=== PATIENT | male | born 1970 | race Caucasian/White ===

== ENCOUNTER 2017-08-05 18:40 | Emergency (ER) | payer MEDICARE, MEDICAID ==
[~2017-08-05] VITALS: Ht 177.8 cm; Wt 99.3 kg
--- NOTE | 2017-08-05 19:25 | PHYS DOC ---
Past History Past Medical History: No Pertinent History Past Surgical History: Cholecystectomy Alcohol Use: None Drug Use: None Adult General Chief Complaint Chief Complaint: SUICDAL IDEATION HPI HPI Patient is a 47 year old M who presents with depression and suicidal ideation. Patient states he had an argument with his who called the police on him and the patient would like a male army helicopter pilot to shoot him . Unfortunately female army helicopter pilot showed up and he would not allow her to take his life. Patient states he is suicidal. Patient is not homicidal. Patient has no guns in the house. Patient has other attempts of suicide along standing history of depression. Patient off all his medications. Patient denies any chest pain or shortness of breath. Patient denies any nausea/vomiting/diarrhea. Patient is no other complaints. Review of Systems Review of Systems GEN: Depression and suicide HEENT: Denies blurred vision, sore throat CV: Denies chest pain RESP: Denies shortness of air, cough GI: Denies n/v/d NEURO: Denies confusion, dizziness MSK: Denies weakness, joint pain/swelling All other systems were reviewed and found to be within normal limits, except as documented in this note. Physical Exam Physical Exam GEN.: Moderate distress. Alert and oriented. HEENT: Head is normocephalic, atraumatic NECK: Supple. LUNGS: CTAB. HEART: RRR, S1, S2 present. Peripheral pulses intact ABDOMEN: Soft, nontender. Positive bowel sounds. EXTREMITIES: Without any cyanosis. NEUROLOGIC: Normal speech, normal tone PSYCHIATRIC: Depressed, suicidal ideation, will not make eye contact. SKIN: No ulcerations Current Patient Data Vital Signs Vital Signs Date Time Temp Pulse Resp B/P (MAP) Pulse Ox O2 Delivery O2 Flow Rate FiO2 08/05/17 19:14 98.8 100 24 95 Room Air Lab Results Laboratory Tests Test 08/05/17 19:40 08/05/17 19:55 White Blood Count 12.5 x10^3/uL Red Blood Count 5.16 x10^6/uL Hemoglobin 16.9 g/dL Hematocrit 48.3 % Mean Corpuscular Volume 94 fL Mean Corpuscular Hemoglobin 33 pg Mean Corpuscular Hemoglobin Concent 35 g/dL Red Cell Distribution Width 12.9 % Platelet Count 253 x10^3/uL Neutrophils (%) (Auto) 74 % Lymphocytes (%) (Auto) 20 % Monocytes (%) (Auto) 5 % Eosinophils (%) (Auto) 2 % Basophils (%) (Auto) 0 % Neutrophils # (Auto) 9.2 x10^3uL Lymphocytes # (Auto) 2.5 x10^3/uL Monocytes # (Auto) 0.6 x10^3/uL Eosinophils # (Auto) 0.2 x10^3/uL Basophils # (Auto) 0.0 x10^3/uL Sodium Level 138 mmol/L Potassium Level 3.7 mmol/L Chloride Level 102 mmol/L Carbon Dioxide Level 28 mmol/L Anion Gap 8 Blood Urea Nitrogen 7 mg/dL Creatinine 0.9 mg/dL Estimated GFR (Cockcroft-Gault) 90.4 BUN/Creatinine Ratio 8 Glucose Level 90 mg/dL Calcium Level 9.1 mg/dL Total Bilirubin 0.5 mg/dL Aspartate Amino Transf (AST/SGOT) 11 U/L Alanine Aminotransferase (ALT/SGPT) 19 U/L Alkaline Phosphatase 119 U/L Troponin I Quantitative < 0.017 ng/mL Total Protein 6.8 g/dL Albumin 3.5 g/dL Albumin/Globulin Ratio 1.1 Ethyl Alcohol Level < 10 mg/dL Urine Opiates Screen Neg Urine Methadone Screen Neg Urine Barbiturates Neg Urine Phencyclidine Screen Neg Urine Amphetamine/Methamphetamine Neg Urine Benzodiazepines Screen Neg Urine Cocaine Screen Neg Urine Cannabinoids Screen Neg Urine Ethyl Alcohol Neg EKG EKG [] Radiology/Procedures Radiology/Procedures [] Course & Med Decision Making Course & Med Decision Making Pertinent Labs and Imaging studies reviewed. (See chart for details) ED course: Patient was seen and examined emergency room a psych workup was ordered After reviewing the chart, CC/HPI/PMH, physical exam, [lab results], I do not believe the patient has emergent medical condition warranting further workup and /or admission at this time. I believe patient is stable to be transferred to a psych facility for further evaluation and management. 0158: [facility] has accepted the patient [] Dragon Disclaimer Dragon Disclaimer This electronic medical record was generated, in whole or in part, using a voice recognition dictation system. Departure Departure: Impression: Primary Impression: Suicidal ideation Additional Impression: Depression Disposition: 65 XFER TO PSYCH HOSP/UNIT Condition: STABLE Problem Qualifiers PATTI QUINTERO DO Aug 05, 2017 19:25
[2017-08-05 20:14] LABS: BASO % 0 % (0-3); EOS # 0.2 x10^3/uL (0.0-0.7); EOS % 2 % (0-3); HEMATOCRIT 48.3 % (39.0-53.0); HEMOGLOBIN 16.9 g/dL (13.0-17.5); LYMPH # 2.5 x10^3/uL (1.0-4.8); LYMPH % 20 % (24-48); MEAN CORPUSCULAR HEMOGLOBIN 33 pg (25-35); MEAN CORPUSCULAR HGB CONC 35 g/dL (31-37); MEAN CORPUSCULAR VOLUME 94 fL (79-100); MONO # 0.6 x10^3/uL (0.0-1.1); MONO % 5 % (0-9); NEUT # 9.2 x10^3uL (1.8-7.7); NEUT % 74 % (31-73); PLATELET COUNT 253 x10^3/uL (140-400); RED BLOOD COUNT 5.16 x10^6/uL (4.30-5.70); RED CELL DISTRIBUTION WIDTH 12.9 % (11.5-14.5); WHITE BLOOD COUNT 12.5 x10^3/uL (4.0-11.0)
[2017-08-05 20:21] LABS: ALBUMIN 3.5 g/dL (3.4-5.0); ALBUMIN/GLOBULIN RATIO 1.1 (1.0-1.7); CALCIUM 9.1 mg/dL (8.5-10.1); CREATININE 0.9 mg/dL (0.7-1.3); GFR 90.4; POTASSIUM 3.7 mmol/L (3.5-5.1); TOTAL BILIRUBIN 0.5 mg/dL (0.2-1.0); TOTAL PROTEIN 6.8 g/dL (6.4-8.2)
[2017-08-05 20:36] LABS: BARBITURATES NEG (NEG); BENZODIAZEPINES NEG (NEG); CANNABINOIDS NEG (NEG); COCAINE NEG (NEG); METHADONE NEG (NEG); OPIATES NEG (NEG); PHENCYCLIDINE NEG (NEG)
[2017-08-05 20:37] LABS: AMPHETAMINE/METHAMPHETAMINE NEG (NEG)
[2017-08-06 02:17] VITALS: BP 142/81
== END 2017-08-06 03:30 ==
LOC: ER 18:40
DX: R45.851 Suicidal ideations (principal); F32.9 Major depressive disorder, single episode, unspecified
CPT/HCPCS: 36415; 80053; 80307; 84484; 85025; 99285; G0480; G0479

== ENCOUNTER 2018-01-04 23:10 | Emergency (ER) | payer MEDICARE, MEDICAID ==
[~2018-01-04] VITALS: Ht 177.8 cm; Wt 94.8 kg
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
--- NOTE | 2018-01-04 23:52 | EKG ---
[address] [address] Test Date: 2018-01-04 Test Time: 23:47:57 Pat Name: KARLEY DELGADO Department: Room: Gender: M [employer] Attacher: : 1970 Requested By: VICTOR MANUEL CUBA Order Number: [id number] Reading MD: Emir Kelley Measurements Intervals [place] Rate: 83 P: 51 MT: 130 QRS: 40 QRSD: 96 T: 42 QT: 352 QTc: 414 Interpretive Statements SINUS RHYTHM Electronically Signed On 01-07-2018 11:00:26 CDT by Emir Kelley
[2018-01-05] MEDS ORDERED: IV RINGERS SOLUTION,LACTATED 1,000 ML IV SCH
[2018-01-05] MEDS ORDERED: MVI, ADULT NO.4 WITH VIT K 10 ML, FOLIC ACID SYRINGE for ER 1 MG, THIAMINE INJ 100 MG i... IV ONE ×4
[2018-01-05] MEDS ORDERED: MVI, ADULT NO.4 WITH VIT K 10 ML VIAL IV ONE (00:12)
[2018-01-05] MEDS ORDERED: THIAMINE 200 MG/2 ML VIAL. IV ONE (00:12)
[2018-01-05] MEDS ORDERED: FOLIC ACID 5 MG/ML SYRINGE for ER IV ONE (00:12)
[2018-01-05 00:57] LABS: BASO # 0.1 x10^3/uL (0.0-0.2); BASO % 0 % (0-3); EOS # 0.2 x10^3/uL (0.0-0.7); EOS % 2 % (0-3); HEMATOCRIT 46.1 % (39.0-53.0); LYMPH # 3.3 x10^3/uL (1.0-4.8); LYMPH % 30 % (24-48); MEAN CORPUSCULAR HEMOGLOBIN 32 pg (25-35); MEAN CORPUSCULAR HGB CONC 35 g/dL (31-37); MEAN CORPUSCULAR VOLUME 93 fL (79-100); MONO # 0.5 x10^3/uL (0.0-1.1); MONO % 5 % (0-9); NEUT # 7.1 x10^3uL (1.8-7.7); NEUT % 63 % (31-73); PLATELET COUNT 283 x10^3/uL (140-400); RED BLOOD COUNT 4.94 x10^6/uL (4.30-5.70); RED CELL DISTRIBUTION WIDTH 13.1 % (11.5-14.5); WHITE BLOOD COUNT 11.2 x10^3/uL (4.0-11.0)
[2018-01-05 01:11] LABS: ALBUMIN 3.7 g/dL (3.4-5.0); CALCIUM 9.6 mg/dL (8.5-10.1); CREATININE 0.8 mg/dL (0.7-1.3); DIRECT BILIRUBIN 0.1 mg/dL (0.0-0.2); GFR 103.6; MAGNESIUM 1.7 mg/dL (1.8-2.4); POTASSIUM 3.4 mmol/L (3.5-5.1); TOTAL BILIRUBIN 0.5 mg/dL (0.2-1.0); TOTAL PROTEIN 7.1 g/dL (6.4-8.2)
--- NOTE | 2018-01-05 01:35 | RAD ---
PQRS Compliance statement: One or more of the following individualized dose reduction techniques were utilized for this examination: 1. Automated exposure control. 2. Adjustment of the mA and/or kV according to patient size. 3. Use of iterative reconstruction technique. Indication:Mental status changes TECHNIQUE: CT head without IV contrast COMPARISON:None FINDINGS: no pathologic extra-axial or intra-axial fluid collection. The ventricles and nasal cisterns are within normal limits. No acute intracranial bleed. No focal loss of biswas-white differentiation. The orbits are within normal limits. No suspicious calvarial lesion. Visualized paranasal sinuses and mastoid air cells are clear. IMPRESSION: No acute intracranial process. If concern for acute ischemic stroke is high, please consider MRI brain. Electronically signed by: Robbie Petersen DO (01/05/2018 1:31 AM) [facility]
[2018-01-05] MEDS ORDERED: MAGNESIUM HYDROXIDE 2,400 MG/30 ML ORAL.SUSP. PO ONE (02:00)
[2018-01-05 02:24] LABS: AMPHETAMINE/METHAMPHETAMINE NEG (NEG); BARBITURATES NEG (NEG); BENZODIAZEPINES NEG (NEG); CANNABINOIDS NEG (NEG); COCAINE NEG (NEG); METHADONE NEG (NEG); OPIATES NEG (NEG); PHENCYCLIDINE NEG (NEG)
[2018-01-05 02:31] LABS: BACTERIA,URINE FEW /HPF (0-FEW); BILIRUBIN,URINE NEG (NEG); CLARITY,URINE HAZY; COLOR,URINE AMBER; GLUCOSE,URINE NEG (NEG); NITRITE,URINE NEG (NEG); RBC,URINE OCC /HPF (0-2); SQUAMOUS EPITHELIAL CELL,UR OCC /LPF; UROBILINOGEN,URINE 0.2 mg/dL (0.2 mg/dL)
--- NOTE | 2018-01-05 04:17 | RAD ---
PROCEDURE: PORTABLE CHEST 1V CLINICAL INDICATION: Cough COMPARISON: " FINDINGS: No pneumothorax identified. Cardiac and mediastinal contours unremarkable. No pulmonary consolidation or acute airspace disease. No acute osseous abnormalities identified. IMPRESSION: No pulmonary consolidation or acute airspace disease. Electronically signed by: Robbie Petersen DO (01/05/2018 4:13 AM) [facility]
[2018-01-05 06:39] VITALS: BP 115/44
[2018-01-05] MEDS ORDERED: MAGNESIUM OXIDE 400 MG TABLET PO ONE (06:45)
[2018-01-05] MEDS ORDERED: POTASSIUM CHLORIDE 20 MEQ/15 ML ORAL LIQUID. PEG ONE (06:45)
[2018-01-05] MEDS ORDERED: LORazepam 1 MG TABLET PO ONE (07:15)
[2018-01-05] MEDS ORDERED: OLANZapine 2.5 MG TABLET PO ONE (07:15)
[2018-01-05] MEDS ORDERED: LORazepam 1 MG TABLET ONE (07:16)
[2018-01-05] MEDS ORDERED: MAGN400T22 PO (10:44)
[2018-01-05] MEDS ORDERED: POTA10TA10 PO (10:44)
== END 2018-01-05 13:05 | disposition home or self-care (01) ==
LOC: ER 23:10
DX: R41.82 Altered mental status, unspecified (principal); E83.42 Hypomagnesemia; E87.6 Hypokalemia; F31.9 Bipolar disorder, unspecified; F29 Unspecified psychosis not due to a substance or known physiological condition; F41.9 Anxiety disorder, unspecified; F20.9 Schizophrenia, unspecified; G43.909 Migraine, unspecified, not intractable, without status migrainosus; Z87.820 Personal history of traumatic brain injury; Z91.14 Patient's other noncompliance with medication regimen
CPT/HCPCS: 36415; 70450; 71045; 80048; 80076; 80307; 81001; 82550; 83735; 84443; 84484; 85025; 85610; 85730; 93005; 96365; 99285; G0480; J7120; G0479

== ENCOUNTER 2018-03-18 18:31 | Emergency (ER) | payer MEDICARE, MEDICAID ==
[~2018-03-18] VITALS: Ht 177.8 cm; Wt 94.8 kg
[~2018-03-18 18:31] MED LIST: MAGN400T22 PO; POTA10TA10 PO
[2018-03-18 19:14] LABS: BASO # 0.1 x10^3/uL (0.0-0.2); BASO % 1 % (0-3); EOS # 0.2 x10^3/uL (0.0-0.7); EOS % 2 % (0-3); HEMATOCRIT 46.2 % (39.0-53.0); HEMOGLOBIN 15.9 g/dL (13.0-17.5); LYMPH # 2.6 x10^3/uL (1.0-4.8); LYMPH % 30 % (24-48); MEAN CORPUSCULAR HEMOGLOBIN 32 pg (25-35); MEAN CORPUSCULAR HGB CONC 34 g/dL (31-37); MEAN CORPUSCULAR VOLUME 94 fL (79-100); MONO # 0.5 x10^3/uL (0.0-1.1); MONO % 6 % (0-9); NEUT # 5.2 x10^3uL (1.8-7.7); NEUT % 61 % (31-73); PLATELET COUNT 266 x10^3/uL (140-400); RED BLOOD COUNT 4.92 x10^6/uL (4.30-5.70); RED CELL DISTRIBUTION WIDTH 12.9 % (11.5-14.5); WHITE BLOOD COUNT 8.5 x10^3/uL (4.0-11.0)
[2018-03-18 19:22] LABS: CALCIUM 9.4 mg/dL (8.5-10.1); CREATININE 0.9 mg/dL (0.7-1.3); GFR 90.4; POTASSIUM 3.9 mmol/L (3.5-5.1)
[2018-03-18 19:26] LABS: AMPHETAMINE/METHAMPHETAMINE POS (NEG); BARBITURATES NEG (NEG); BENZODIAZEPINES NEG (NEG); CANNABINOIDS NEG (NEG); COCAINE NEG (NEG); METHADONE NEG (NEG); OPIATES NEG (NEG); PHENCYCLIDINE NEG (NEG)
--- NOTE | 2018-03-18 19:45 | PHYS DOC ---
Adult General Chief Complaint Chief Complaint i need help HPI HPI 47 years old male with multiple problem presented to the emergency department by ambulance they called 911 stating that he is suicidal however in emergency department he denies it he stated the only reason I said I am suicidal so I get to the to the emergency department ,i m having trouble with my and I need to be out of my house also need to be placed in some mental institution to get some help. Patient denies suicidal thoughts suicidal attempts also denies being homicidal . Review of Systems Review of Systems Constitutional: Denies fever or chills [] Eyes: Denies change in visual acuity, redness, or eye pain [] HENT: Denies nasal congestion or sore throat [] Respiratory: Denies cough or shortness of breath [] Cardiovascular: No additional information not addressed in HPI [] GI: Denies abdominal pain, nausea, vomiting, bloody stools or diarrhea [] : Denies dysuria or hematuria [] Musculoskeletal: Denies back pain or joint pain [] Integument: Denies rash or skin lesions [] Neurologic: Denies headache, focal weakness or sensory changes [] Endocrine: Denies polyuria or polydipsia [] All other systems were reviewed and found to be within normal limits, except as documented in this note. Allergies Allergies Allergies Coded Allergies Type Severity Reaction Last Updated Verified No Known Drug Allergies 01/05/18 No Physical Exam Physical Exam Constitutional: Well developed, well nourished, no acute distress, non-toxic appearance. [] HENT: Normocephalic, atraumatic, bilateral external ears normal, oropharynx moist, no oral exudates, nose normal. [] Eyes: PERRLA, EOMI, conjunctiva normal, no discharge. [] Neck: Normal range of motion, no tenderness, supple, no stridor. [] Cardiovascular:Heart rate regular rhythm, no murmur [] Lungs & Thorax: Bilateral breath sounds clear to auscultation [] Abdomen: Bowel sounds normal, soft, no tenderness, no masses, no pulsatile masses. [] Skin: Warm, dry, no erythema, no rash. [] Back: No tenderness, no CVA tenderness. [] Extremities: No tenderness, no cyanosis, no clubbing, ROM intact, no edema. [] Neurologic: Alert and oriented X 3, normal motor function, normal sensory function, no focal deficits noted. [] Psychologic: Very angry Current Patient Data Vital Signs Vital Signs Date Time Temp Pulse Resp B/P (MAP) Pulse Ox O2 Delivery O2 Flow Rate FiO2 03/18/18 18:45 98.1 94 18 98 Room Air Lab Results Laboratory Tests Test 03/18/18 19:00 White Blood Count 8.5 x10^3/uL (4.0-11.0) Red Blood Count 4.92 x10^6/uL (4.30-5.70) Hemoglobin 15.9 g/dL (13.0-17.5) Hematocrit 46.2 % (39.0-53.0) Mean Corpuscular Volume 94 fL (79-100) Mean Corpuscular Hemoglobin 32 pg (25-35) Mean Corpuscular Hemoglobin Concent 34 g/dL (31-37) Red Cell Distribution Width 12.9 % (11.5-14.5) Platelet Count 266 x10^3/uL (140-400) Neutrophils (%) (Auto) 61 % (31-73) Lymphocytes (%) (Auto) 30 % (24-48) Monocytes (%) (Auto) 6 % (0-9) Eosinophils (%) (Auto) 2 % (0-3) Basophils (%) (Auto) 1 % (0-3) Neutrophils # (Auto) 5.2 x10^3uL (1.8-7.7) Lymphocytes # (Auto) 2.6 x10^3/uL (1.0-4.8) Monocytes # (Auto) 0.5 x10^3/uL (0.0-1.1) Eosinophils # (Auto) 0.2 x10^3/uL (0.0-0.7) Basophils # (Auto) 0.1 x10^3/uL (0.0-0.2) Sodium Level 138 mmol/L (136-145) Potassium Level 3.9 mmol/L (3.5-5.1) Chloride Level 101 mmol/L (98-107) Carbon Dioxide Level 30 mmol/L (21-32) Anion Gap 7 (6-14) Blood Urea Nitrogen 9 mg/dL (8-26) Creatinine 0.9 mg/dL (0.7-1.3) Estimated GFR (Cockcroft-Gault) 90.4 Glucose Level 95 mg/dL (70-99) Calcium Level 9.4 mg/dL (8.5-10.1) Urine Opiates Screen Neg (NEG) Urine Methadone Screen Neg (NEG) Urine Barbiturates Neg (NEG) Urine Phencyclidine Screen Neg (NEG) Urine Amphetamine/Methamphetamine Pos (NEG) Urine Benzodiazepines Screen Neg (NEG) Urine Cocaine Screen Neg (NEG) Urine Cannabinoids Screen Neg (NEG) Ethyl Alcohol Level < 10 mg/dL (0-10) Urine Ethyl Alcohol Neg (NEG) EKG EKG [] Radiology/Procedures Radiology/Procedures [] Course & Med Decision Making Course & Med Decision Making Pertinent Labs and Imaging studies reviewed. (See chart for details) [] Final Impression Final Impression [] Problems: (1) Depression Qualifiers: Dragon Disclaimer Dragon Disclaimer This electronic medical record was generated, in whole or in part, using a voice recognition dictation system. JARAD CHOWDHURY MD Mar 18, 2018 19:45
[2018-03-19 04:28] VITALS: BP 105/87
== END 2018-03-19 04:28 | disposition home or self-care (01) ==
LOC: ER 18:31
DX: F32.9 Major depressive disorder, single episode, unspecified (principal)
CPT/HCPCS: 36415; 80048; 80307; 85025; 99284; G0480

== ENCOUNTER 2018-04-22 18:16 | Emergency (ER) | payer MEDICAID, MEDICARE ==
[~2018-04-22] VITALS: Ht 177.8 cm; Wt 102.4 kg
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
[2018-04-22] MEDS ORDERED: MVI, ADULT NO.4 WITH VIT K 10 ML, FOLIC ACID SYRINGE for ER 1 MG, THIAMINE INJ 100 MG i... IV ONE ×4 (19:00)
[2018-04-22 19:34] LABS: BASO # 0.1 x10^3/uL (0.0-0.2); BASO % 1 % (0-3); EOS # 0.2 x10^3/uL (0.0-0.7); EOS % 2 % (0-3); HEMATOCRIT 46.3 % (39.0-53.0); HEMOGLOBIN 15.9 g/dL (13.0-17.5); LYMPH # 2.9 x10^3/uL (1.0-4.8); LYMPH % 24 % (24-48); MEAN CORPUSCULAR HEMOGLOBIN 32 pg (25-35); MEAN CORPUSCULAR HGB CONC 34 g/dL (31-37); MEAN CORPUSCULAR VOLUME 94 fL (79-100); MONO # 0.7 x10^3/uL (0.0-1.1); MONO % 6 % (0-9); NEUT # 8.5 x10^3uL (1.8-7.7); NEUT % 68 % (31-73); PLATELET COUNT 301 x10^3/uL (140-400); RED BLOOD COUNT 4.94 x10^6/uL (4.30-5.70); RED CELL DISTRIBUTION WIDTH 12.8 % (11.5-14.5); WHITE BLOOD COUNT 12.5 x10^3/uL (4.0-11.0)
[2018-04-22 19:58] LABS: ALBUMIN 3.6 g/dL (3.4-5.0); CREATININE 0.9 mg/dL (0.7-1.3); DIRECT BILIRUBIN 0.1 mg/dL (0.0-0.2); GFR 90.4; MAGNESIUM 1.7 mg/dL (1.8-2.4); POTASSIUM 3.6 mmol/L (3.5-5.1); TOTAL BILIRUBIN 0.4 mg/dL (0.2-1.0)
[2018-04-22 20:36] LABS: BARBITURATES NEG (NEG); BENZODIAZEPINES NEG (NEG); CANNABINOIDS NEG (NEG); COCAINE NEG (NEG); METHADONE NEG (NEG); OPIATES NEG (NEG); PHENCYCLIDINE NEG (NEG)
[2018-04-22 20:37] LABS: AMPHETAMINE/METHAMPHETAMINE NEG (NEG)
[2018-04-22] MEDS ORDERED: MAGNESIUM SULFATE 2GM 50 ML IV ONE (20:45)
[2018-04-22] MEDS ORDERED: IV RINGERS SOLUTION,LACTATED 1,000 ML IV ONE (20:45)
[2018-04-22 20:57] LABS: SEDIMENTATION RATE 6 (0-15)
[2018-04-22 21:48] LABS: CLARITY,URINE CLEAR; COLOR,URINE STRAW
[2018-04-22 21:49] LABS: BACTERIA,URINE 0 /HPF (0-FEW); BILIRUBIN,URINE NEG (NEG); GLUCOSE,URINE NEG (NEG); NITRITE,URINE NEG (NEG); RBC,URINE 0 /HPF (0-2); UROBILINOGEN,URINE 0.2 mg/dL (0.2 mg/dL); WBC,URINE OCC /HPF (0-4)
--- NOTE | 2018-04-23 00:07 | RAD ---
Examination: PORTABLE CHEST 1V History: COUGH Comparison/Correlation: 01/04/2018 portable chest x-ray exam Findings: Portable upright frontal view of the chest was obtained. Heart size and pulmonary vasculature are normal. No infiltrate, pneumothorax, or pleural effusion. Bony structures are unremarkable. Impression: No active disease. Electronically signed by: Ahmet Ledesma MD (04/23/2018 12:03 AM) [facility]
[2018-04-23] MEDS ORDERED: LITH150C PO (03:16)
[2018-04-23] MEDS ORDERED: BUPR100T7 PO (03:17)
[2018-04-23] MEDS ORDERED: HALO100A2 IM (03:18)
[2018-04-23 03:19] VITALS: BP 139/84
[2018-04-23] MEDS ORDERED: TRAZ-85 PO (03:19)
--- NOTE | 2018-04-23 05:47 | EKG ---
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
== END 2018-04-23 06:03 | disposition short-term general hospital (02) ==
LOC: ER 18:16 → EEVIPCON 18:16 → ER 04-23 04:55
DX: R45.851 Suicidal ideations (principal); F60.3 Borderline personality disorder; E83.42 Hypomagnesemia; D72.829 Elevated white blood cell count, unspecified; F25.9 Schizoaffective disorder, unspecified; F41.9 Anxiety disorder, unspecified; F31.9 Bipolar disorder, unspecified; G43.909 Migraine, unspecified, not intractable, without status migrainosus; Z91.19 Patient's noncompliance with other medical treatment and regimen
CPT/HCPCS: 36415; 71045; 80048; 80076; 80178; 80307; 81001; 82553; 83690; 83735; 83880; 84443; 84484; 85025; 85610; 85651; 85730; 93005; 96365; 96366; 96367; 99285; G0480; J3475; J7120

== ENCOUNTER 2018-07-17 19:14 | Emergency (ER) | payer MEDICARE ==
[~2018-07-17] VITALS: Ht 177.8 cm; Wt 102.4 kg
[~2018-07-17 19:14] MED LIST changes: +BUPR100T7 PO; +HALO100A2 IM; +LITH150C PO; +TRAZ-120 PO
[2018-07-17 19:39] VITALS: BP 117/81
[2018-07-17 19:56] LABS: BARBITURATES NEG (NEG); BENZODIAZEPINES NEG (NEG); CANNABINOIDS NEG (NEG); COCAINE NEG (NEG); METHADONE NEG (NEG); OPIATES NEG (NEG); PHENCYCLIDINE NEG (NEG)
[2018-07-17 19:58] LABS: AMPHETAMINE/METHAMPHETAMINE NEG (NEG)
[2018-07-17 20:12] LABS: BACTERIA,URINE 0 /HPF (0-FEW); BILIRUBIN,URINE NEG (NEG); CLARITY,URINE CLEAR; COLOR,URINE YELLOW; GLUCOSE,URINE NEG (NEG); NITRITE,URINE NEG (NEG); RBC,URINE 0 /HPF (0-2); SQUAMOUS EPITHELIAL CELL,UR OCC /LPF; UROBILINOGEN,URINE 0.2 mg/dL (0.2 mg/dL); WBC,URINE 0 /HPF (0-4)
[2018-07-17 20:27] LABS: BASO % 0 % (0-3); EOS # 0.1 x10^3/uL (0.0-0.7); EOS % 1 % (0-3); HEMOGLOBIN 16.7 g/dL (13.0-17.5); LYMPH # 2.5 x10^3/uL (1.0-4.8); LYMPH % 28 % (24-48); MEAN CORPUSCULAR HEMOGLOBIN 32 pg (25-35); MEAN CORPUSCULAR HGB CONC 35 g/dL (31-37); MEAN CORPUSCULAR VOLUME 92 fL (79-100); MONO # 0.5 x10^3/uL (0.0-1.1); MONO % 5 % (0-9); NEUT # 5.9 x10^3uL (1.8-7.7); NEUT % 66 % (31-73); PLATELET COUNT 249 x10^3/uL (140-400); RED BLOOD COUNT 5.23 x10^6/uL (4.30-5.70)
[2018-07-17 21:11] LABS: ALBUMIN 3.6 g/dL (3.4-5.0); CALCIUM 10.1 mg/dL (8.5-10.1); CREATININE 1.1 mg/dL (0.7-1.3); DIRECT BILIRUBIN 0.1 mg/dL (0.0-0.2); GFR 71.4; POTASSIUM 3.4 mmol/L (3.5-5.1); TOTAL BILIRUBIN 0.4 mg/dL (0.2-1.0); TOTAL PROTEIN 7.1 g/dL (6.4-8.2)
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
== END 2018-07-18 02:40 | disposition left against medical advice (07) ==
LOC: ER 19:14
DX: F22 Delusional disorders (principal); F41.9 Anxiety disorder, unspecified; F31.9 Bipolar disorder, unspecified
CPT/HCPCS: 36415; 80048; 80076; 80307; 81001; 85025; 99284; G0480

== ENCOUNTER 2018-09-27 19:56 | Emergency (ER) | payer MEDICARE ==
[~2018-09-27] VITALS: Ht 177.8 cm; Wt 88.5 kg
--- NOTE | 2018-09-27 20:01 | ED.ADGEN ---
Past History Past Medical History: Anxiety, Bipolar, Depression Past Surgical History: No Surgical History Alcohol Use: None Drug Use: None Adult General Chief Complaint Chief Complaint ".. My mom .. and girl friend think I am dehydrated.. I screwed up.. and did not keep my counseling apt. and the cut me off my Haldol and trazodone and lithium.. ".. " I fucked up.. and did not do my follow up.... but I don't want to go off the deep end.. all psycho shit..." HPI HPI Patient is a 48 year old male who presents with above hx and complaints out of his psych. meds and dehydration. Pt. concerned he may become psychotic again. Currently no suicidal ideation or homicidal ideation. Patient denies any active hallucinations at this time. Patient has history of bipolar disorder schedule for anemia, affective disorder, depression, anxiety. Insomnia. Patient normally follows at counseling center. Patient missed to noncompliance with his follow- ups which resulted him be in out of his psychiatric meds. Patient denies other drug use currently. Patient does smoke. Patient is aware is he is more anxious and his insomnia is returning. Review of Systems Review of Systems Constitutional: Denies fever or chills [] Eyes: Denies change in visual acuity, redness, or eye pain [] HENT: Denies nasal congestion or sore throat [] Respiratory: Denies cough or shortness of breath [] Cardiovascular: No additional information not addressed in HPI [] GI: Denies abdominal pain, nausea, vomiting, bloody stools or diarrhea [] : Denies dysuria or hematuria [] Musculoskeletal: Denies back pain or joint pain [] Integument: Denies rash or skin lesions [] Neurologic: Denies headache, focal weakness or sensory changes [] Endocrine: Denies polyuria or polydipsia [] All other systems were reviewed and found to be within normal limits, except as documented in this note. Family History Family History Noncontributory Current Medications Current Medications Current Medications Medications (Trade) Dose Ordered Sig/Regla Start Time Stop Time Status Last Admin Dose Admin Albuterol/ Ipratropium (Duoneb) 3 ml 1X ONCE 09/27/18 22:45 09/27/18 22:46 DC 09/27/18 22:46 3 ML Folic Acid (FOLIC ACID SYRINGE for ER) 5 mg STK-MED ONCE 09/27/18 21:53 09/27/18 21:54 DC Haloperidol Decanoate (Haldol Decanoate Im Extended Release) 50 mg 1X ONCE 09/27/18 21:15 09/27/18 21:16 DC 09/27/18 21:42 50 MG Lactated Ringer's 1,000 ml @ 1,000 mls/hr Q1H 09/27/18 20:02 09/27/18 21:02 DC 09/27/18 20:49 1,000 MLS/HR [place] Carbonate (Lithobid) 300 mg 1X ONCE 09/27/18 22:15 09/27/18 22:16 DC 09/27/18 23:33 300 MG Magnesium Sulfate 50 ml @ 25 mls/hr 1X ONCE 09/27/18 22:00 09/27/18 23:41 DC 09/27/18 22:00 25 MLS/HR Multivitamins/ Minerals (Infuvite Adult) 10 ml STK-MED ONCE 09/27/18 21:53 09/27/18 21:54 DC Multivitamins/ Minerals 10 ml/ Folic Acid 1 mg/ Thiamine HCl 100 mg/Lactated Ringer's 1,011.2 ml @ 1,011.2 mls/hr 1X ONCE 09/27/18 22:00 09/27/18 22:59 DC 09/27/18 22:06 1,011.2 MLS/HR Thiamine HCl (Thiamine Vial) 200 mg STK-MED ONCE 09/27/18 21:53 09/27/18 21:54 DC Trazodone HCl (Desyrel) 100 mg 1X ONCE 09/27/18 22:00 09/27/18 22:05 DC Allergies Allergies Allergies Coded Allergies Type Severity Reaction Last Updated Verified No Known Drug Allergies 01/05/18 No Physical Exam Physical Exam Constitutional: Moderate emotional distress, non-toxic appearance. [] HENT: Normocephalic, atraumatic, bilateral external ears normal, oropharynx moist, no oral exudates, nose normal. [] Eyes: PERRLA, EOMI, conjunctiva normal, no discharge. [] Glasses Neck: Normal range of motion, no tenderness, supple, no stridor. [] Cardiovascular:Heart rate regular rhythm, no murmur [] Lungs & Thorax: Bilateral breath sounds equal at apex with scattered wheezes on auscultation [] Abdomen: Bowel sounds normal, soft, no tenderness, no masses, no pulsatile masses. [] Skin: Warm, dry, no erythema, no rash. [] Back: No tenderness, no CVA tenderness. [] Extremities: No tenderness, no cyanosis, no clubbing, ROM intact, no edema. [] Neurologic: Alert and oriented X 3, normal motor function, normal sensory function, no focal deficits noted. []DTR +2 patella and brachial. No drift. G rips equal. Psychologic: Affect anxious, judgement normal, mood normal. [] Current Patient Data Vital Signs Vital Signs Date Time Temp Pulse Resp B/P (MAP) Pulse Ox O2 Delivery O2 Flow Rate FiO2 09/27/18 22:47 97 Room Air 09/27/18 21:37 94 20 136/69 (91) 09/27/18 20:05 98.2 Lab Results Laboratory Tests Test 09/27/18 20:26 09/27/18 20:35 Urine Collection Type Unknown Urine Color [place] Urine Clarity Clear Urine pH 6.0 Urine Specific [place] 1.025 Urine Protein Trace (NEG-TRACE) Urine Glucose (UA) Neg mg/dL (NEG) Urine Ketones (Stick) Neg mg/dL (NEG) Urine Blood Neg (NEG) Urine Nitrite Neg (NEG) Urine Bilirubin Neg (NEG) Urine Urobilinogen Dipstick 0.2 mg/dL (0.2 mg/dL) Urine Leukocyte Esterase Neg (NEG) Urine RBC 0 /HPF (0-2) Urine WBC 0 /HPF (0-4) Urine Squamous Epithelial Cells Occ /LPF Urine Bacteria Few /HPF (0-FEW) Urine Opiates Screen Neg (NEG) Urine Methadone Screen Neg (NEG) Urine Barbiturates Neg (NEG) Urine Phencyclidine Screen Neg (NEG) Urine Amphetamine/Methamphetamine Neg (NEG) Urine Benzodiazepines Screen Neg (NEG) Urine Cocaine Screen Neg (NEG) Urine Cannabinoids Screen Neg (NEG) Urine Ethyl Alcohol Neg (NEG) White Blood Count 8.8 x10^3/uL (4.0-11.0) Red Blood Count 5.18 x10^6/uL (4.30-5.70) Hemoglobin 16.7 g/dL (13.0-17.5) Hematocrit 48.2 % (39.0-53.0) Mean Corpuscular Volume 93 fL (79-100) Mean Corpuscular Hemoglobin 32 pg (25-35) Mean Corpuscular Hemoglobin Concent 35 g/dL (31-37) Red Cell Distribution Width 13.5 % (11.5-14.5) Platelet Count 277 x10^3/uL (140-400) Neutrophils (%) (Auto) 60 % (31-73) Lymphocytes (%) (Auto) 32 % (24-48) Monocytes (%) (Auto) 5 % (0-9) Eosinophils (%) (Auto) 2 % (0-3) Basophils (%) (Auto) 1 % (0-3) Neutrophils # (Auto) 5.3 x10^3uL (1.8-7.7) Lymphocytes # (Auto) 2.8 x10^3/uL (1.0-4.8) Monocytes # (Auto) 0.4 x10^3/uL (0.0-1.1) Eosinophils # (Auto) 0.2 x10^3/uL (0.0-0.7) Basophils # (Auto) 0.1 x10^3/uL (0.0-0.2) Erythrocyte Sedimentation Rate 10 (0-15) Prothrombin Time 10.1 SEC (9.4-11.4) Prothrombin Time INR 1.0 (0.9-1.1) PTT 27 SEC (23-33) D-Dimer (Anita) 0.23 mg/L (0.00-0.50) Sodium Level 141 mmol/L (136-145) Potassium Level 3.6 mmol/L (3.5-5.1) Chloride Level 104 mmol/L (98-107) Carbon Dioxide Level 29 mmol/L (21-32) Anion Gap 8 (6-14) Blood Urea Nitrogen 14 mg/dL (8-26) Creatinine 0.9 mg/dL (0.7-1.3) Estimated GFR (Cockcroft-Gault) 90.1 Glucose Level 117 mg/dL (70-99) H Calcium Level 9.8 mg/dL (8.5-10.1) Magnesium Level 1.7 mg/dL (1.8-2.4) L Total Bilirubin 0.4 mg/dL (0.2-1.0) Direct Bilirubin 0.1 mg/dL (0.0-0.2) Aspartate Amino Transferase (AST) 11 U/L (15-37) L Alanine Aminotransferase (ALT) 21 U/L (16-63) Alkaline Phosphatase 117 U/L (46-116) H Creatine Kinase 64 U/L (39-308) Troponin I Quantitative < 0.017 ng/mL (0-0.055) FW-Sdr-U-Type Natriuretic Peptide 17 pg/mL (0-124) Total Protein 7.0 g/dL (6.4-8.2) Albumin 3.6 g/dL (3.4-5.0) Lipase 169 U/L (73-393) Ethyl Alcohol Level < 10 mg/dL (0-10) EKG EKG My interpretation EKG shows a sinus rhythm at 80 bpm. No acute morphology[] Radiology/Procedures Radiology/Procedures Dictation of chest x-ray shows no acute interval change.[] Course & Med Decision Making Course & Med Decision Making Pertinent Labs and Imaging studies reviewed. (See chart for details) Pt. instructed he must keep follow up at the counseling center. May resume his home meds tonight as previously directed. Follow up labs, ED work up with primary and counselling center. Must be walk in on Saturday morning. Must keep follow ups as scheduled. [] Final Impression Final Impression 1. Bipolar 2. Schizophrenia 3. Hypomagnesium 1.7 4. Non-compliant. Dragon Disclaimer Dragon Disclaimer This electronic medical record was generated, in whole or in part, using a voice recognition dictation system. Discharge Summary Visit Information Final Diagnosis Problems Medical Problems: (1) Bipolar 1 disorder Status: Acute Brief Hospital Course Allergies Allergies Coded Allergies Type Severity Reaction Last Updated Verified No Known Drug Allergies 01/05/18 No Vital Signs Vital Signs Date Time Temp Pulse Resp B/P (MAP) Pulse Ox O2 Delivery O2 Flow Rate FiO2 09/27/18 22:47 97 Room Air 09/27/18 21:37 94 20 136/69 (91) 09/27/18 20:05 98.2 Lab Results Laboratory Tests Test 09/27/18 20:26 09/27/18 20:35 Urine Collection Type Unknown Urine Color Linette Urine Clarity Clear Urine pH 6.0 Urine Specific [place] 1.025 Urine Protein Trace (NEG-TRACE) Urine Glucose (UA) Neg mg/dL (NEG) Urine Ketones (Stick) Neg mg/dL (NEG) Urine Blood Neg (NEG) Urine Nitrite Neg (NEG) Urine Bilirubin Neg (NEG) Urine Urobilinogen Dipstick 0.2 mg/dL (0.2 mg/dL) Urine Leukocyte Esterase Neg (NEG) Urine RBC 0 /HPF (0-2) Urine WBC 0 /HPF (0-4) Urine Squamous Epithelial Cells Occ /LPF Urine Bacteria Few /HPF (0-FEW) Urine Opiates Screen Neg (NEG) Urine Methadone Screen Neg (NEG) Urine Barbiturates Neg (NEG) Urine Phencyclidine Screen Neg (NEG) Urine Amphetamine/Methamphetamine Neg (NEG) Urine Benzodiazepines Screen Neg (NEG) Urine Cocaine Screen Neg (NEG) Urine Cannabinoids Screen Neg (NEG) Urine Ethyl Alcohol Neg (NEG) White Blood Count 8.8 x10^3/uL (4.0-11.0) Red Blood Count 5.18 x10^6/uL (4.30-5.70) Hemoglobin 16.7 g/dL (13.0-17.5) Hematocrit 48.2 % (39.0-53.0) Mean Corpuscular Volume 93 fL (79-100) Mean Corpuscular Hemoglobin 32 pg (25-35) Mean Corpuscular Hemoglobin Concent 35 g/dL (31-37) Red Cell Distribution Width 13.5 % (11.5-14.5) Platelet Count 277 x10^3/uL (140-400) Neutrophils (%) (Auto) 60 % (31-73) Lymphocytes (%) (Auto) 32 % (24-48) Monocytes (%) (Auto) 5 % (0-9) Eosinophils (%) (Auto) 2 % (0-3) Basophils (%) (Auto) 1 % (0-3) Neutrophils # (Auto) 5.3 x10^3uL (1.8-7.7) Lymphocytes # (Auto) 2.8 x10^3/uL (1.0-4.8) Monocytes # (Auto) 0.4 x10^3/uL (0.0-1.1) Eosinophils # (Auto) 0.2 x10^3/uL (0.0-0.7) Basophils # (Auto) 0.1 x10^3/uL (0.0-0.2) Erythrocyte Sedimentation Rate 10 (0-15) Prothrombin Time 10.1 SEC (9.4-11.4) Prothromb Time International Ratio 1.0 (0.9-1.1) Activated Partial Thromboplast Time 27 SEC (23-33) D-Dimer (Anita) 0.23 mg/L (0.00-0.50) Sodium Level 141 mmol/L (136-145) Potassium Level 3.6 mmol/L (3.5-5.1) Chloride Level 104 mmol/L (98-107) Carbon Dioxide Level 29 mmol/L (21-32) Anion Gap 8 (6-14) Blood Urea Nitrogen 14 mg/dL (8-26) Creatinine 0.9 mg/dL (0.7-1.3) Estimated GFR (Cockcroft-Gault) 90.1 Glucose Level 117 mg/dL (70-99) Calcium Level 9.8 mg/dL (8.5-10.1) Magnesium Level 1.7 mg/dL (1.8-2.4) Total Bilirubin 0.4 mg/dL (0.2-1.0) Direct Bilirubin 0.1 mg/dL (0.0-0.2) Aspartate Amino Transf (AST/SGOT) 11 U/L (15-37) Alanine Aminotransferase (ALT/SGPT) 21 U/L (16-63) Alkaline Phosphatase 117 U/L (46-116) Creatine Kinase 64 U/L (39-308) Troponin I Quantitative < 0.017 ng/mL (0-0.055) MT-Hgz-Q-Type Natriuretic Peptide 17 pg/mL (0-124) Total Protein 7.0 g/dL (6.4-8.2) Albumin 3.6 g/dL (3.4-5.0) Lipase 169 U/L (73-393) Ethyl Alcohol Level < 10 mg/dL (0-10) Brief Hospital Course Mr. Wong is a 48 old male who presented with Bipolar and Schizophrenia. Discharge Information Condition at Discharge: Improved, Stable Disposition/Orders: D/C to Home Dischare Medications Current Medications Lactated Ringer's 1,000 ml @ 1,000 mls/hr Q1H IV Last administered on 09/27/18at 20:49; Admin Dose 1,000 MLS/HR; Start 09/27/18 at 20:02; Stop 09/27/18 at 21:02; Status DC Haloperidol Decanoate (Haldol Decanoate Im Extended Release) 50 mg 1X ONCE IM Last administered on 09/27/18at 21:42; Admin Dose 50 MG; Start 09/27/18 at 21:15; Stop 09/27/18 at 21:16; Status DC Magnesium Sulfate 50 ml @ 25 mls/hr 1X ONCE IV Last administered on 09/27/18at 22:00; Admin Dose 25 MLS/HR; Start 09/27/18 at 22:00; Stop 09/27/18 at 23:41; Status DC Multivitamins/ Minerals 10 ml/ Folic Acid 1 mg/ Thiamine HCl 100 mg/Lactated Ringer's 1,011.2 ml @ 1,011.2 mls/hr 1X ONCE IV Last administered on 09/27/18at 22:06; Admin Dose 1,011.2 MLS/HR; Start 09/27/18 at 22:00; Stop 09/27/18 at 22:59; Status DC Trazodone HCl (Desyrel) 100 mg 1X ONCE PO ; Start 09/27/18 at 22:00; Stop 09/27/18 at 22:05; Status DC [place] Carbonate (Lithobid) 300 mg 1X ONCE PO Last administered on 09/27/18at 23:33; Admin Dose 300 MG; Start 09/27/18 at 22:15; Stop 09/27/18 at 22:16; Status DC Thiamine HCl (Thiamine Vial) 200 mg STK-MED ONCE IV ; Start 09/27/18 at 21:53; Stop 09/27/18 at 21:54; Status DC Multivitamins/ Minerals (Infuvite Adult) 10 ml STK-MED ONCE IV ; Start 09/27/18 at 21:53; Stop 09/27/18 at 21:54; Status DC Folic Acid (FOLIC ACID SYRINGE for ER) 5 mg STK-MED ONCE IV ; Start 09/27/18 at 21:53; Stop 09/27/18 at 21:54; Status DC Albuterol/ Ipratropium (Duoneb) 3 ml 1X ONCE NEB Last administered on 09/27/18at 22:46; Admin Dose 3 ML; Start 09/27/18 at 22:45; Stop 09/27/18 at 22:46; Status DC Active Scripts Active Mag-Oxide (Magnesium Oxide) 400 Mg Tablet 1 Tab PO BID 5 Days Potassium Chloride 10 Meq Tablet.er 10 Meq PO DAILY 5 Days Reported Trazodone Hcl 50 Mg Tablet 50 Mg PO . PRN Haldol Decanoate 100 (Haloperidol Decanoate) 100 Mg/1 Ml Ampul 100 Mg IM . PRN Wellbutrin Sr (Bupropion Hcl) 100 Mg Tablet.er 100 Mg PO . PRN [place] Carbonate 150 Mg Capsule 150 Mg PO . PRN Dragon Disclaimer This chart was dictated in whole or in part using Voice Recognition software in a busy, high-work load, and often noisy Emergency Department environment. It may contain unintended and wholly unrecognized errors or omissions. VICTOR MANUEL CUBA MD Sep 27, 2018 20:01
[2018-09-27] MEDS ORDERED: IV RINGERS SOLUTION,LACTATED 1,000 ML IV SCH (20:02)
[2018-09-27 20:54] LABS: BASO # 0.1 x10^3/uL (0.0-0.2); BASO % 1 % (0-3); EOS # 0.2 x10^3/uL (0.0-0.7); EOS % 2 % (0-3); HEMATOCRIT 48.2 % (39.0-53.0); HEMOGLOBIN 16.7 g/dL (13.0-17.5); LYMPH # 2.8 x10^3/uL (1.0-4.8); LYMPH % 32 % (24-48); MEAN CORPUSCULAR HEMOGLOBIN 32 pg (25-35); MEAN CORPUSCULAR HGB CONC 35 g/dL (31-37); MEAN CORPUSCULAR VOLUME 93 fL (79-100); MONO # 0.4 x10^3/uL (0.0-1.1); MONO % 5 % (0-9); NEUT # 5.3 x10^3uL (1.8-7.7); NEUT % 60 % (31-73); PLATELET COUNT 277 x10^3/uL (140-400); RED BLOOD COUNT 5.18 x10^6/uL (4.30-5.70); RED CELL DISTRIBUTION WIDTH 13.5 % (11.5-14.5); WHITE BLOOD COUNT 8.8 x10^3/uL (4.0-11.0)
[2018-09-27 20:59] LABS: BARBITURATES NEG (NEG); BENZODIAZEPINES NEG (NEG); CANNABINOIDS NEG (NEG); COCAINE NEG (NEG); METHADONE NEG (NEG); OPIATES NEG (NEG); PHENCYCLIDINE NEG (NEG)
[2018-09-27 21:02] LABS: AMPHETAMINE/METHAMPHETAMINE NEG (NEG)
[2018-09-27 21:04] LABS: BACTERIA,URINE FEW /HPF (0-FEW); BILIRUBIN,URINE NEG (NEG); CLARITY,URINE CLEAR; COLOR,URINE AMBER; GLUCOSE,URINE NEG (NEG); NITRITE,URINE NEG (NEG); RBC,URINE 0 /HPF (0-2); SQUAMOUS EPITHELIAL CELL,UR OCC /LPF; UROBILINOGEN,URINE 0.2 mg/dL (0.2 mg/dL); WBC,URINE 0 /HPF (0-4)
[2018-09-27] MEDS ORDERED: HALOPERIDOL DECANOATE IM ER 50 MG/ML VIAL. IM ONE (21:15)
[2018-09-27 21:22] LABS: ALBUMIN 3.6 g/dL (3.4-5.0); CALCIUM 9.8 mg/dL (8.5-10.1); CREATININE 0.9 mg/dL (0.7-1.3); DIRECT BILIRUBIN 0.1 mg/dL (0.0-0.2); GFR 90.1; MAGNESIUM 1.7 mg/dL (1.8-2.4); POTASSIUM 3.6 mmol/L (3.5-5.1); TOTAL BILIRUBIN 0.4 mg/dL (0.2-1.0)
[2018-09-27 21:37] VITALS: BP 136/69
[2018-09-27] MEDS ORDERED: FOLIC ACID 5 MG/ML SYRINGE for ER IV ONE (21:53)
[2018-09-27] MEDS ORDERED: MVI, ADULT NO.4 WITH VIT K 10 ML VIAL IV ONE (21:53)
[2018-09-27] MEDS ORDERED: THIAMINE 200 MG/2 ML VIAL. IV ONE (21:53)
[2018-09-27] MEDS ORDERED: traZODone 50 MG TABLET. PO ONE (22:00)
[2018-09-27] MEDS ORDERED: MVI, ADULT NO.4 WITH VIT K 10 ML, FOLIC ACID SYRINGE for ER 1 MG, THIAMINE INJ 100 MG i... IV ONE ×4 (22:00)
[2018-09-27] MEDS ORDERED: MAGNESIUM SULFATE 2GM 50 ML IV ONE (22:00)
[2018-09-27 22:07] LABS: SEDIMENTATION RATE 10 (0-15)
[2018-09-27] MEDS ORDERED: LITHIUM CARBONATE ER 300 MG TABLET.ER PO ONE (22:15)
[2018-09-27] MEDS ORDERED: IPRATRPIUM/ALBUTEROL 0.5/2.5MG 3 ML NEBU. NEB ONE (22:45)
--- NOTE | 2018-09-28 04:43 | RAD ---
PORTABLE CHEST 1V Clinical Indication: Dyspnea Comparison: AP chest, April 22, 2018. Findings: The cardiomediastinal silhouette is normal. Lungs are clear. There is no pneumothorax. No pleural effusion is appreciated. No acute bone abnormality. IMPRESSION: No acute cardiopulmonary process. Electronically signed by: Seamus Marino MD (09/28/2018 4:40 AM) [facility]
--- NOTE | 2018-09-29 06:52 | EKG ---
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
== END 2018-09-27 23:35 | disposition home or self-care (01) ==
LOC: ER 19:56
DX: F31.9 Bipolar disorder, unspecified (principal); F20.9 Schizophrenia, unspecified; E83.42 Hypomagnesemia; F41.9 Anxiety disorder, unspecified; G47.00 Insomnia, unspecified; E78.00 Pure hypercholesterolemia, unspecified; Z91.19 Patient's noncompliance with other medical treatment and regimen; Z86.2 Personal history of diseases of the blood and blood-forming organs and certain disorders involving the immune mechanism
CPT/HCPCS: 36415; 71045; 80048; 80076; 80178; 80307; 81001; 82550; 83690; 83735; 83880; 84443; 84484; 85025; 85379; 85610; 85651; 85730; 93005; 94640; 96361; 96365; 96368; 96372; 99285; G0480; J1631; J3475; J7120; J7620; 96366

== ENCOUNTER 2018-10-28 23:51 | Emergency (ER) | payer MEDICARE ==
[~2018-10-28] VITALS: Ht 177.8 cm; Wt 102.4 kg
--- NOTE | 2018-10-29 00:27 | PHYS DOC ---
Past History Past Medical History: Anxiety, Bipolar, Depression, Other (ANIKA ORTA MD) Past Surgical History: Cholecystectomy, Other (ANIKA ORTA MD) Alcohol Use: None Drug Use: None (ANIKA ORTA MD) Adult General Chief Complaint Chief Complaint: PSYCH EVALUATION HPI HPI Patient is a 48 year old male who presents to the emergency department requesting a psychiatric evaluation. The patient has history of depression, bipolar, and anxiety. Patient has had multiple visits to the emergency department here at [facility] for psychiatric related complaints. The patient states that he currently does not feel safe. The patient admits that he has not taking his medications and does have noted history of noncompliance with his psychiatric regimen. Was last seen in the emergency department on September 27, 2018. At that time he was treated for mild dehydration and was administered Haldol. The patient states that he does not follow at the [facility] center at this time as they "took me off all my meds. Who does that?" The patient states that he does not feel he is safe in this town and feels that he needs to be in a psychiatric inpatient facility. Denies suicidal or homicidal ideation at this time. No other somatic complaints. (ANIKA ORTA MD) Review of Systems Review of Systems Constitutional: Denies fever or chills [] Eyes: Denies change in visual acuity, redness, or eye pain [] HENT: Denies nasal congestion or sore throat [] Respiratory: Denies cough or shortness of breath [] Cardiovascular: Denies chest pain or edema[] GI: Denies abdominal pain, nausea, vomiting, bloody stools or diarrhea [] : Denies dysuria or hematuria [] Musculoskeletal: Denies back pain or joint pain [] Integument: Denies rash or skin lesions [] Neurologic: Denies headache, focal weakness or sensory changes [] All other systems were reviewed and found to be within normal limits, except as documented in this note. (ANIKA ORTA MD) Allergies Allergies Allergies Coded Allergies Type Severity Reaction Last Updated Verified No Known Drug Allergies 01/05/18 No (ANIKA ORTA MD) Physical Exam Physical Exam Constitutional: Alert, afebrile, appears anxious. [] HENT: Normocephalic, atraumatic, bilateral external ears normal, oropharynx moist, no oral exudates, nose normal. [] Eyes: PERRLA, EOMI, conjunctiva normal, no discharge. [] Neck: Normal range of motion, no tenderness, supple, no stridor. [] Cardiovascular:Heart rate regular rhythm, no murmur [] Lungs & Thorax: Bilateral breath sounds clear to auscultation [] Abdomen: Bowel sounds normal, soft, no tenderness, no masses, no pulsatile masses. [] Skin: Warm, dry, no erythema, no rash. [] Back: No tenderness, no CVA tenderness. [] Extremities: No tenderness, no cyanosis, no clubbing, ROM intact, no edema. [] Neurologic: Alert and oriented X 3, normal motor function, normal sensory function, no focal deficits noted. [] Psychologic: Flight of ideas, tangential and pressured speech, judgment impaired, denies suicidal or homicidal ideation. [] (ANIKA ORTA MD) Current Patient Data Vital Signs Vital Signs Date Time Temp Pulse Resp B/P (MAP) Pulse Ox O2 Delivery O2 Flow Rate FiO2 10/29/18 00:59 89 18 128/82 (97) 98 Room Air 10/29/18 00:07 98.6 Lab Results Laboratory Tests Test 10/29/18 00:05 10/29/18 00:20 Urine Collection Type Unknown Urine Color Yellow Urine Clarity Clear Urine pH 6.0 Urine Specific [place] >=1.030 Urine Protein Neg Urine Glucose (UA) Neg mg/dL Urine Ketones (Stick) Neg mg/dL Urine Blood Mod Urine Nitrite Neg Urine Bilirubin Neg Urine Urobilinogen Dipstick 0.2 mg/dL Urine Leukocyte Esterase Neg White Blood Count 9.8 x10^3/uL Red Blood Count 4.61 x10^6/uL Hemoglobin 15.1 g/dL Hematocrit 43.9 % Mean Corpuscular Volume 95 fL Mean Corpuscular Hemoglobin 33 pg Mean Corpuscular Hemoglobin Concent 34 g/dL Red Cell Distribution Width 13.7 % Platelet Count 239 x10^3/uL Neutrophils (%) (Auto) 62 % Lymphocytes (%) (Auto) 30 % Monocytes (%) (Auto) 5 % Eosinophils (%) (Auto) 2 % Basophils (%) (Auto) 1 % Neutrophils # (Auto) 6.1 x10^3uL Lymphocytes # (Auto) 2.9 x10^3/uL Monocytes # (Auto) 0.5 x10^3/uL Eosinophils # (Auto) 0.2 x10^3/uL Basophils # (Auto) 0.1 x10^3/uL (ANIKA ORTA MD) EKG EKG Interpreted by me: Heart rate 95, sinus rhythm, leftward axis, no acute ST/T- wave abnormalities present[] (ANIKA ORTA MD) Radiology/Procedures Radiology/Procedures Not performed[] (ANIKA ORTA MD) Course & Med Decision Making Course & Med Decision Making Pertinent Labs and Imaging studies reviewed. (See chart for details) Patient was medically cleared for psychiatric evaluation. The patient underwent screening through the guidance center. The screener notes that the patient does not seem to be harmed anyone else that could be a harm to himself though he does not voice suicidal ideation. There is concerned that the patient is not taking care of himself in that his decision making seems to be impaired at this time. Due to concern for patient's safety, the guidance center screener recommended that the patient undergo involuntary inpatient psychiatric admission. Patient is currently waiting for placement at [facility]. Care of patient transferred to Dr. Kovacs, [facility] emergency physician at 0600.[] (ANIKA ORTA MD) Course & Med Decision Making The patient was inpatient and mildly belligerent with his nurse, but remained p hysically calm. He was just frustrated with the amount of time was taking to get him transferred. He was at swimming him several times that this is a lengthy process. The patient was accepted for transfer by [facility] by Dr Shelton. We will go by ambulance. (REAGAN KOVACS DO) Dragon Disclaimer Dragon Disclaimer This electronic medical record was generated, in whole or in part, using a voice recognition dictation system. (ANIKA ORTA MD) Departure Departure: Impression: Primary Impression: Acute psychosis Disposition: 65 XFER TO PSYCH HOSP/UNIT Condition: GUARDED Referrals: PCP,NO (PCP) ANIKA ORTA MD Oct 29, 2018 00:27 REAGAN KOVACS DO Oct 29, 2018 12:38
[2018-10-29 00:40] LABS: BILIRUBIN,URINE NEG (NEG); CLARITY,URINE CLEAR; COLOR,URINE YELLOW; GLUCOSE,URINE NEG (NEG)
[2018-10-29 00:41] LABS: NITRITE,URINE NEG (NEG); UROBILINOGEN,URINE 0.2 mg/dL (0.2 mg/dL)
[2018-10-29 00:41] LABS: BASO # 0.1 x10^3/uL (0.0-0.2); BASO % 1 % (0-3); EOS # 0.2 x10^3/uL (0.0-0.7); EOS % 2 % (0-3); HEMATOCRIT 43.9 % (39.0-53.0); HEMOGLOBIN 15.1 g/dL (13.0-17.5); LYMPH # 2.9 x10^3/uL (1.0-4.8); LYMPH % 30 % (24-48); MEAN CORPUSCULAR HEMOGLOBIN 33 pg (25-35); MEAN CORPUSCULAR HGB CONC 34 g/dL (31-37); MEAN CORPUSCULAR VOLUME 95 fL (79-100); MONO # 0.5 x10^3/uL (0.0-1.1); MONO % 5 % (0-9); NEUT # 6.1 x10^3uL (1.8-7.7); NEUT % 62 % (31-73); PLATELET COUNT 239 x10^3/uL (140-400); RED BLOOD COUNT 4.61 x10^6/uL (4.30-5.70); RED CELL DISTRIBUTION WIDTH 13.7 % (11.5-14.5); WHITE BLOOD COUNT 9.8 x10^3/uL (4.0-11.0)
[2018-10-29 04:13] LABS: ALBUMIN 3.2 g/dL (3.4-5.0); CALCIUM 9.2 mg/dL (8.5-10.1); GFR 79.8; MAGNESIUM 1.6 mg/dL (1.8-2.4); POTASSIUM 3.3 mmol/L (3.5-5.1); TOTAL BILIRUBIN 0.4 mg/dL (0.2-1.0); TOTAL PROTEIN 6.3 g/dL (6.4-8.2)
[2018-10-29 04:13] LABS: BARBITURATES NEG (NEG); BENZODIAZEPINES NEG (NEG); CANNABINOIDS NEG (NEG); COCAINE NEG (NEG); METHADONE NEG (NEG); OPIATES NEG (NEG); PHENCYCLIDINE NEG (NEG)
[2018-10-29 04:37] LABS: ACETAMIN < 2.0 mcg/mL (10-30); SALIC 6.8 mg/dL (2.8-20.0)
[2018-10-29 04:38] LABS: AMPHETAMINE/METHAMPHETAMINE NEG (NEG)
[2018-10-29 04:38] LABS: ETHANOL < 10 mg/dL (0-10)
[2018-10-29 12:54] VITALS: BP 106/97
--- NOTE | 2018-10-30 11:05 | EKG ---
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
== END 2018-10-29 13:04 ==
LOC: ER 23:51
DX: F23 Brief psychotic disorder (principal); F41.9 Anxiety disorder, unspecified; F31.9 Bipolar disorder, unspecified
CPT/HCPCS: 36415; 80053; 80307; 80329; 81003; 83735; 85025; 93005; 99285; G0480; 82003

== ENCOUNTER 2019-04-12 21:42 | Emergency (ER) | payer MEDICAID, MEDICARE ==
[~2019-04-12] VITALS: Ht 177.8 cm; Wt 90.7 kg
[2019-04-12 22:34] LABS: BASO # 0.1 x10^3/uL (0.0-0.2); BASO % 1 % (0-3); EOS # 0.2 x10^3/uL (0.0-0.7); EOS % 2 % (0-3); HEMATOCRIT 45.3 % (39.0-53.0); HEMOGLOBIN 15.8 g/dL (13.0-17.5); LYMPH # 3.1 x10^3/uL (1.0-4.8); LYMPH % 33 % (24-48); MEAN CORPUSCULAR HEMOGLOBIN 32 pg (25-35); MEAN CORPUSCULAR HGB CONC 35 g/dL (31-37); MEAN CORPUSCULAR VOLUME 92 fL (79-100); MONO # 0.5 x10^3/uL (0.0-1.1); MONO % 6 % (0-9); NEUT # 5.4 x10^3uL (1.8-7.7); NEUT % 58 % (31-73); PLATELET COUNT 241 x10^3/uL (140-400); RED BLOOD COUNT 4.92 x10^6/uL (4.30-5.70); RED CELL DISTRIBUTION WIDTH 12.9 % (11.5-14.5); WHITE BLOOD COUNT 9.4 x10^3/uL (4.0-11.0)
[2019-04-12 22:39] LABS: CALCIUM 9.4 mg/dL (8.5-10.1); CREATININE 0.8 mg/dL (0.7-1.3); GFR 103.2; POTASSIUM 3.5 mmol/L (3.5-5.1)
[2019-04-12 22:45] LABS: ALBUMIN 3.5 g/dL (3.4-5.0); ALBUMIN/GLOBULIN RATIO 1.1 (1.0-1.7); TOTAL BILIRUBIN 0.5 mg/dL (0.2-1.0); TOTAL PROTEIN 6.8 g/dL (6.4-8.2)
--- NOTE | 2019-04-12 23:09 | EKG ---
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
[2019-04-13 00:22] LABS: AMPHETAMINE/METHAMPHETAMINE NEG (NEG); BARBITURATES NEG (NEG); BENZODIAZEPINES NEG (NEG); CANNABINOIDS NEG (NEG); COCAINE NEG (NEG); METHADONE NEG (NEG); OPIATES NEG (NEG); PHENCYCLIDINE NEG (NEG)
[2019-04-13 02:28] VITALS: BP 111/59
--- NOTE | 2019-04-13 05:16 | PHYS DOC ---
Past History Past Medical History: Anxiety, Bipolar, Depression, Other Past Surgical History: Cholecystectomy, Other Alcohol Use: None Drug Use: None Adult General Chief Complaint Chief Complaint: MANIC BEHAVIOR HPI HPI Patient is a 48-year-old male with history of anxiety, depression and bipolar disorder presents with rambling speech, and accusations against this X spouse. Patient is currently homeless but is been staying with his sex . Apparently, the please were contacted and the patient was no longer welcome in his home. EMS were contacted as the patient stated that he intended to harm himself. Patient's plan to harm himself was to get a spider, perhaps a brown recluse on his arm. No other threats of self-harm or homicidal ideation. No other acute symptoms or complaints. History is limited based upon the patient's presentation. Patient's current smoker. Denies drugs and alcohol.[] Review of Systems Review of Systems Review symptoms as per history of present illness. All other review symptoms negative. All other systems were reviewed and found to be within normal limits, except as documented in this note. Allergies Allergies Allergies Coded Allergies Type Severity Reaction Last Updated Verified No Known Drug Allergies 01/05/18 No Physical Exam Physical Exam Constitutional: Well developed, well nourished, no acute distress, non-toxic appearance. [] HENT: Normocephalic, atraumatic, bilateral external ears normal, oropharynx moist, no oral exudates, nose normal. [] Eyes: PERRLA, EOMI, conjunctiva normal, no discharge. [] Neck: Normal range of motion, no tenderness, supple, no stridor. [] Cardiovascular:Heart rate regular rhythm, no murmur [] Lungs & Thorax: Bilateral breath sounds clear to auscultation [] Abdomen: Bowel sounds normal, soft, no tenderness,. [] Skin: Warm, dry, no erythema, no rash. [] Back: No tenderness.. [] Extremities: No tenderness, no edema. [] Neurologic: Alert and oriented X 2, normal motor function, normal sensory function, no focal deficits noted. [] Psychologic: Affect animated, rambling assured speech, muslim delusions. No HI or SI. No hallucinations. [] Current Patient Data Vital Signs Vital Signs Date Time Temp Pulse Resp B/P (MAP) Pulse Ox O2 Delivery O2 Flow Rate FiO2 04/13/19 02:28 99 16 111/59 (76) 95 Room Air 04/12/19 21:42 98.3 Lab Results Laboratory Tests Test 04/12/19 22:10 04/12/19 23:57 White Blood Count 9.4 x10^3/uL (4.0-11.0) Red Blood Count 4.92 x10^6/uL (4.30-5.70) Hemoglobin 15.8 g/dL (13.0-17.5) Hematocrit 45.3 % (39.0-53.0) Mean Corpuscular Volume 92 fL (79-100) Mean Corpuscular Hemoglobin 32 pg (25-35) Mean Corpuscular Hemoglobin Concent 35 g/dL (31-37) Red Cell Distribution Width 12.9 % (11.5-14.5) Platelet Count 241 x10^3/uL (140-400) Neutrophils (%) (Auto) 58 % (31-73) Lymphocytes (%) (Auto) 33 % (24-48) Monocytes (%) (Auto) 6 % (0-9) Eosinophils (%) (Auto) 2 % (0-3) Basophils (%) (Auto) 1 % (0-3) Neutrophils # (Auto) 5.4 x10^3uL (1.8-7.7) Lymphocytes # (Auto) 3.1 x10^3/uL (1.0-4.8) Monocytes # (Auto) 0.5 x10^3/uL (0.0-1.1) Eosinophils # (Auto) 0.2 x10^3/uL (0.0-0.7) Basophils # (Auto) 0.1 x10^3/uL (0.0-0.2) Sodium Level 142 mmol/L (136-145) Potassium Level 3.5 mmol/L (3.5-5.1) Chloride Level 105 mmol/L (98-107) Carbon Dioxide Level 26 mmol/L (21-32) Anion Gap 11 (6-14) Blood Urea Nitrogen 14 mg/dL (8-26) Creatinine 0.8 mg/dL (0.7-1.3) Estimated GFR (Cockcroft-Gault) 103.2 BUN/Creatinine Ratio 18 (6-20) Glucose Level 99 mg/dL (70-99) Calcium Level 9.4 mg/dL (8.5-10.1) Total Bilirubin 0.5 mg/dL (0.2-1.0) Aspartate Amino Transferase (AST) 12 U/L (15-37) L Alanine Aminotransferase (ALT) 19 U/L (16-63) Alkaline Phosphatase 115 U/L (46-116) Total Protein 6.8 g/dL (6.4-8.2) Albumin 3.5 g/dL (3.4-5.0) Albumin/Globulin Ratio 1.1 (1.0-1.7) Ethyl Alcohol Level < 10 mg/dL (0-10) Urine Opiates Screen Neg (NEG) Urine Methadone Screen Neg (NEG) Urine Barbiturates Neg (NEG) Urine Phencyclidine Screen Neg (NEG) Urine Amphetamine/Methamphetamine Neg (NEG) Urine Benzodiazepines Screen Neg (NEG) Urine Cocaine Screen Neg (NEG) Urine Cannabinoids Screen Neg (NEG) Urine Ethyl Alcohol Neg (NEG) EKG EKG [EKG: Reviewed] Radiology/Procedures Radiology/Procedures [] Course & Med Decision Making Course & Med Decision Making Pertinent Labs and Imaging studies reviewed. (See chart for details) [Patient is medically stable. 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 Patient is not homicidal suicidal. Recommendations are for safe plan with discharge on ED.] Dragon Disclaimer Dragon Disclaimer This electronic medical record was generated, in whole or in part, using a voice recognition dictation system. Departure Departure: Impression: Primary Impression: Mood disorder Disposition: 01 HOME, SELF-CARE Condition: STABLE Referrals: PCP,NO (PCP) Patient Instructions: Mood Disorders Additional Instructions: Please follow-up with local therapist and case filler. REAGAN JIMENEZ DO Apr 13, 2019 05:16
== END 2019-04-13 05:19 | disposition home or self-care (01) ==
LOC: ER 21:42
DX: F31.9 Bipolar disorder, unspecified (principal); F41.9 Anxiety disorder, unspecified; F17.200 Nicotine dependence, unspecified, uncomplicated; Z59.0 Homelessness
CPT/HCPCS: 36415; 80053; 80307; 84443; 85025; 93005; 99285; G0480

== ENCOUNTER 2019-11-23 22:00 | Emergency (ER) | payer MEDICARE, MEDICAID ==
[~2019-11-23] VITALS: Ht 177.8 cm; Wt 102.4 kg
[2019-11-23 22:38] LABS: BASO # 0.1 x10^3/uL (0.0-0.2); BASO % 0 % (0-3); EOS # 0.2 x10^3/uL (0.0-0.7); EOS % 2 % (0-3); HEMATOCRIT 44.7 % (39.0-53.0); HEMOGLOBIN 15.3 g/dL (13.0-17.5); LYMPH # 3.1 x10^3/uL (1.0-4.8); LYMPH % 23 % (24-48); MEAN CORPUSCULAR HEMOGLOBIN 33 pg (25-35); MEAN CORPUSCULAR HGB CONC 34 g/dL (31-37); MEAN CORPUSCULAR VOLUME 96 fL (79-100); MONO % 7 % (0-9); NEUT % 68 % (31-73); PLATELET COUNT 249 x10^3/uL (140-400); RED BLOOD COUNT 4.67 x10^6/uL (4.30-5.70); RED CELL DISTRIBUTION WIDTH 13.6 % (11.5-14.5); WHITE BLOOD COUNT 13.4 x10^3/uL (4.0-11.0)
[2019-11-23 22:46] LABS: CALCIUM 9.7 mg/dL (8.5-10.1); CREATININE 1.2 mg/dL (0.7-1.3); GFR 64.4; POTASSIUM 3.3 mmol/L (3.5-5.1)
[2019-11-23 22:52] LABS: ALBUMIN 4.1 g/dL (3.4-5.0); ALBUMIN/GLOBULIN RATIO 1.2 (1.0-1.7); MAGNESIUM 1.7 mg/dL (1.8-2.4); TOTAL BILIRUBIN 0.8 mg/dL (0.2-1.0); TOTAL PROTEIN 7.4 g/dL (6.4-8.2)
[2019-11-23 22:56] LABS: SALIC 7.3 mg/dL (2.8-20.0)
[2019-11-23 22:57] LABS: ACETAMIN < 2.0 mcg/mL (10-30); ETHANOL < 10 mg/dL (0-10)
[2019-11-23 23:32] LABS: CLARITY,URINE CLEAR; COLOR,URINE YELLOW; GLUCOSE,URINE NEG (NEG)
[2019-11-23 23:33] LABS: BACTERIA,URINE 0 /HPF (0-FEW); BARBITURATES NEG (NEG); BENZODIAZEPINES NEG (NEG); BILIRUBIN,URINE NEG (NEG); CANNABINOIDS NEG (NEG); COCAINE NEG (NEG); METHADONE NEG (NEG); NITRITE,URINE NEG (NEG); OPIATES NEG (NEG); PHENCYCLIDINE NEG (NEG); RBC,URINE 0 /HPF (0-2); SQUAMOUS EPITHELIAL CELL,UR OCC /LPF; UROBILINOGEN,URINE 0.2 mg/dL (0.2 mg/dL)
[2019-11-23 23:34] LABS: AMPHETAMINE/METHAMPHETAMINE NEG (NEG)
[2019-11-24] MEDS ORDERED: MAGNESIUM CHLORIDE ER 64 MG TABLET.ER PO ONE
[2019-11-24] MEDS ORDERED: POTASSIUM CHLORIDE 20 MEQ TABLET.ER. PO ONE
--- NOTE | 2019-11-24 00:26 | PHYS DOC ---
Past History Past Medical History: Anxiety, Bipolar, Depression, Schizophrenia, Other (AIDEN JEREZ DO) Past Surgical History: Cholecystectomy (AIDEN JEREZ DO) Smoking: Cigarettes Alcohol Use: None Drug Use: None (AIDEN JEREZ DO) General Adult EDM: Chief Complaint: SUICIDAL IDEATION HPI: HPI: 49-year-old male with past medical history of anxiety, bipolar disorder, depression, and schizophrenia presents with report of 5 day history of suicidal ideation. Patient apparently has not been sleeping well for the past several nights. Patient [place] ". Patient reports seeing a "skin walker " for which he called the police who called EMS regarding patient with mental health issues. Patient reports he had plan to lay on railroad tracks to commit suicide however also smelled something that was concerning for possible "chemical to clean up a crime ". Denies fever chills. Reports has been sleeping outside and has several bug bites and abrasions to his legs. (AIDEN JEREZ DO) Review of Systems: Review of Systems: Constitutional: Denies fever or chills Eyes: Denies redness or eye pain HENT: Denies nasal congestion or sore throat Respiratory: Denies cough or shortness of breath Cardiovascular: Denies chest pain or palpitations GI: Denies abdominal pain, nausea, or vomiting : Denies dysuria or hematuria Musculoskeletal: Denies back pain or joint pain Integument: Denies rash or skin lesions Neurologic: Denies headache, focal weakness or sensory changes Complete systems were reviewed and found to be within normal limits, except as documented in this note. (AIDEN JEREZ DO) Current Medications: Current Meds: Current Medications Medications (Trade) Dose Ordered Sig/Regla Start Time Stop Time Status Last Admin Dose Admin Magnesium Chloride (Mag Delay) 64 mg 1X ONCE 11/24/19 00:00 11/24/19 00:01 UNV 11/24/19 00:14 64 MG Potassium Chloride (Klor-Con) 40 meq 1X ONCE 11/24/19 00:00 11/24/19 00:01 UNV 11/24/19 00:14 40 MEQ (AIEDN JEREZ DO) Allergies: Allergies: Allergies Coded Allergies Type Severity Reaction Last Updated Verified No Known Drug Allergies 01/05/18 No (AIDEN JEREZ DO) Physical Exam: PE: Constitutional: Well developed, well nourished, manic, non-toxic appearance HENT: Normocephalic, atraumatic Eyes: PERRL, EOMI, conjunctiva normal, no discharge, no nystagmus Neck: Normal range of motion, supple Lungs & Thorax: No respiratory distress, equal chest rise and fall Abdomen: Soft, no tenderness Skin: Warm, dry, no erythema, no rash Extremities: No tenderness, ROM intact, no edema Neurologic: Alert and oriented X 3, normal motor function, normal sensory function, no focal deficits noted Psychologic: Affect manic, hyperverbal, judgment abnormal, reports visual hallucinations and reports suicidal ideation (AIDEN JEREZ DO) Current Patient Data: Labs: Laboratory Tests Test 11/23/19 22:19 11/23/19 23:10 White Blood Count 13.4 x10^3/uL (4.0-11.0) H Red Blood Count 4.67 x10^6/uL (4.30-5.70) Hemoglobin 15.3 g/dL (13.0-17.5) Hematocrit 44.7 % (39.0-53.0) Mean Corpuscular Volume 96 fL (79-100) Mean Corpuscular Hemoglobin 33 pg (25-35) Mean Corpuscular Hemoglobin Concent 34 g/dL (31-37) Red Cell Distribution Width 13.6 % (11.5-14.5) Platelet Count 249 x10^3/uL (140-400) Neutrophils (%) (Auto) 68 % (31-73) Lymphocytes (%) (Auto) 23 % (24-48) L Monocytes (%) (Auto) 7 % (0-9) Eosinophils (%) (Auto) 2 % (0-3) Basophils (%) (Auto) 0 % (0-3) Neutrophils # (Auto) 9.0 x10^3uL (1.8-7.7) H Lymphocytes # (Auto) 3.1 x10^3/uL (1.0-4.8) Monocytes # (Auto) 1.0 x10^3/uL (0.0-1.1) Eosinophils # (Auto) 0.2 x10^3/uL (0.0-0.7) Basophils # (Auto) 0.1 x10^3/uL (0.0-0.2) Sodium Level 140 mmol/L (136-145) Potassium Level 3.3 mmol/L (3.5-5.1) L Chloride Level 103 mmol/L (98-107) Carbon Dioxide Level 23 mmol/L (21-32) Anion Gap 14 (6-14) Blood Urea Nitrogen 12 mg/dL (8-26) Creatinine 1.2 mg/dL (0.7-1.3) Estimated GFR (Cockcroft-Gault) 64.4 BUN/Creatinine Ratio 10 (6-20) Glucose Level 102 mg/dL (70-99) H Calcium Level 9.7 mg/dL (8.5-10.1) Magnesium Level 1.7 mg/dL (1.8-2.4) L Total Bilirubin 0.8 mg/dL (0.2-1.0) Aspartate Amino Transferase (AST) 20 U/L (15-37) Alanine Aminotransferase (ALT) 20 U/L (16-63) Alkaline Phosphatase 105 U/L (46-116) Total Protein 7.4 g/dL (6.4-8.2) Albumin 4.1 g/dL (3.4-5.0) Albumin/Globulin Ratio 1.2 (1.0-1.7) Salicylates Level 7.3 mg/dL (2.8-20.0) Salicylate Last Dose Date Unknown Salicylate Last Dose Time Unknown Acetaminophen Level < 2.0 mcg/mL (10-30) L Acetaminophen Last Dose Date Unknown Acetaminophen Last Dose Time Unknown Ethyl Alcohol Level < 10 mg/dL (0-10) Urine Collection Type Unknown Urine Color Yellow Urine Clarity Clear Urine pH 5.5 Urine Specific [place] >=1.030 Urine Protein 30 mg/dl (NEG-TRACE) Urine Glucose (UA) Neg mg/dL (NEG) Urine Ketones (Stick) Trace mg/dL (NEG) Urine Blood Neg (NEG) Urine Nitrite Neg (NEG) Urine Bilirubin Neg (NEG) Urine Urobilinogen Dipstick 0.2 mg/dL (0.2 mg/dL) Urine Leukocyte Esterase Neg (NEG) Urine RBC 0 /HPF (0-2) Urine WBC 1-4 /HPF (0-4) Urine Squamous Epithelial Cells Occ /LPF Urine Bacteria 0 /HPF (0-FEW) Urine Opiates Screen Neg (NEG) Urine Methadone Screen Neg (NEG) Urine Barbiturates Neg (NEG) Urine Phencyclidine Screen Neg (NEG) Urine Amphetamine/Methamphetamine Neg (NEG) Urine Benzodiazepines Screen Neg (NEG) Urine Cocaine Screen Neg (NEG) Urine Cannabinoids Screen Neg (NEG) Urine Ethyl Alcohol Neg (NEG) Vital Signs: Vital Signs Date Time Temp Pulse Resp B/P (MAP) Pulse Ox O2 Delivery O2 Flow Rate FiO2 11/23/19 22:00 98.3 92 20 137/81 (99) 97 (AIDEN JEREZ DO) Labs: Laboratory Tests Test 11/23/19 22:19 11/23/19 23:10 White Blood Count 13.4 x10^3/uL Red Blood Count 4.67 x10^6/uL Hemoglobin 15.3 g/dL Hematocrit 44.7 % Mean Corpuscular Volume 96 fL Mean Corpuscular Hemoglobin 33 pg Mean Corpuscular Hemoglobin Concent 34 g/dL Red Cell Distribution Width 13.6 % Platelet Count 249 x10^3/uL Neutrophils (%) (Auto) 68 % Lymphocytes (%) (Auto) 23 % Monocytes (%) (Auto) 7 % Eosinophils (%) (Auto) 2 % Basophils (%) (Auto) 0 % Neutrophils # (Auto) 9.0 x10^3uL Lymphocytes # (Auto) 3.1 x10^3/uL Monocytes # (Auto) 1.0 x10^3/uL Eosinophils # (Auto) 0.2 x10^3/uL Basophils # (Auto) 0.1 x10^3/uL Sodium Level 140 mmol/L Potassium Level 3.3 mmol/L Chloride Level 103 mmol/L Carbon Dioxide Level 23 mmol/L Anion Gap 14 Blood Urea Nitrogen 12 mg/dL Creatinine 1.2 mg/dL Estimated GFR (Cockcroft-Gault) 64.4 BUN/Creatinine Ratio 10 Glucose Level 102 mg/dL Calcium Level 9.7 mg/dL Magnesium Level 1.7 mg/dL Total Bilirubin 0.8 mg/dL Aspartate Amino Transf (AST/SGOT) 20 U/L Alanine Aminotransferase (ALT/SGPT) 20 U/L Alkaline Phosphatase 105 U/L Total Protein 7.4 g/dL Albumin 4.1 g/dL Albumin/Globulin Ratio 1.2 Salicylates Level 7.3 mg/dL Salicylate Last Dose Date Unknown Salicylate Last Dose Time Unknown Acetaminophen Level < 2.0 mcg/mL Acetaminophen Last Dose Date Unknown Acetaminophen Last Dose Time Unknown Ethyl Alcohol Level < 10 mg/dL Urine Collection Type Unknown Urine Color Yellow Urine Clarity Clear Urine pH 5.5 Urine Specific [place] >=1.030 Urine Protein 30 mg/dl Urine Glucose (UA) Neg mg/dL Urine Ketones (Stick) Trace mg/dL Urine Blood Neg Urine Nitrite Neg Urine Bilirubin Neg Urine Urobilinogen Dipstick 0.2 mg/dL Urine Leukocyte Esterase Neg Urine RBC 0 /HPF Urine WBC 1-4 /HPF Urine Squamous Epithelial Cells Occ /LPF Urine Bacteria 0 /HPF Urine Opiates Screen Neg Urine Methadone Screen Neg Urine Barbiturates Neg Urine Phencyclidine Screen Neg Urine Amphetamine/Methamphetamine Neg Urine Benzodiazepines Screen Neg Urine Cocaine Screen Neg Urine Cannabinoids Screen Neg Urine Ethyl Alcohol Neg Current Medications Medications (Trade) Dose Ordered Sig/Regla Route PRN Reason Start Time Stop Time Status Last Admin Dose Admin Potassium Chloride (Klor-Con) 40 meq 1X ONCE PO 11/24/19 00:00 11/24/19 01:04 DC 11/24/19 00:14 Magnesium Chloride (Mag Delay) 64 mg 1X ONCE PO 11/24/19 00:00 11/24/19 01:04 DC 11/24/19 00:14 (YAHAIRA RIVER DO) EKG: EKG: [] (AIDEN JEREZ DO) Radiology/Procedures: Radiology/Procedures: [] (AIDEN JEREZ DO) Course & Med Decision Making: Course & Med Decision Making Pertinent Lab studies reviewed. (See chart for details) Patient presents via EMS with report of suicidal ideation. Patient reports he has been fighting with his former spouse and that [place]. He is paranoid with history of schizophrenia. Labs obtained and posted to chart. Hypokalemia addressed. Patient medically clear for psychiatric evaluation. Awaiting tele-psych evaluation and recommendation. 0215- Tele-psych evaluation performed with recommendation for inpatient psychiatric services. Awaiting accepting facility and physician for inpatient psychiatric services. 0600- Sign out given to Dr. River for further evaluation and final disposition. Discussed current findings and plan with patient, who acknowledges understanding and agreement. (AIDEN JEREZ DO) Course & Med Decision Making 0600 Care of pt assumed at shift change. Awaiting screening exam completion later this morning. (YAHAIRA RIVER DO) Dragon Disclaimer: Dragon Disclaimer: This electronic medical record was generated, in whole or in part, using a voice recognition dictation system. (AIDEN JEREZ DO) [place] Disclaimer: 1240 stable, patient becoming anxious and somewhat agitated. He will only go to [facility] but they do not have a bed for him for the next 24 hours. He now wishes to leave against advice. We are verifying his current psychiatric status based on his assessment 1300 We talked to the elevator examiner. They are working on involuntary commitment at this time. Pt is cooperative at this time. Awaiting possible placement at another facility. 14[address] back. Dr. Luna is the accepting physician to [facility]. (YAHAIRA RIVER DO) Departure Departure: Impression: Primary Impression: Suicidal ideation Additional Impression: Schizophrenia Qualified Codes: F20.0 - Paranoid schizophrenia Disposition: 65 XFER TO PSYCH HOSP/UNIT (Dr. Luna is accepting at [facility]) Condition: STABLE Referrals: PCP,NO (PCP) Justification of Admission: Justification of Admission: Justification of Admission Dx: N/A (AIDEN JEREZ DO) Justification of Admission Dx: N/A (YAHAIRA RIVER DO) AIDEN JEREZ DO Nov 24, 2019 00:26 YAHAIRA RIVER DO Nov 24, 2019 06:16
[2019-11-24 15:12] VITALS: BP 120/73
== END 2019-11-24 15:35 ==
LOC: ER 22:00 → EEVIPCON 22:00 → ER 11-24 15:35
DX: S80.812A Abrasion, left lower leg, initial encounter (principal); S80.811A Abrasion, right lower leg, initial encounter; R45.851 Suicidal ideations; F20.0 Paranoid schizophrenia; F41.9 Anxiety disorder, unspecified; F31.9 Bipolar disorder, unspecified; F17.210 Nicotine dependence, cigarettes, uncomplicated; W57.XXXA Bitten or stung by nonvenomous insect and other nonvenomous arthropods, initial encounter; Y93.89 Activity, other specified; Y92.89 Other specified places as the place of occurrence of the external cause; Y99.8 Other external cause status
CPT/HCPCS: 36415; 80053; 80307; 80329; 81001; 83735; 85025; 99285; G0480

== ENCOUNTER 2020-07-10 | Emergency (ER) | payer OTHER, MEDICAID ==
[~2020-07-10] VITALS: Ht 177.8 cm; Wt 105.7 kg
--- NOTE | 2020-07-10 00:29 | PHYS DOC ---
Past History Past Medical History: Anxiety, Bipolar, Depression, Schizophrenia, Other (YAHAIRA SIERRA MD) Past Surgical History: Cholecystectomy (YAHAIRA SIERRA MD) Smoking: Cigarettes Alcohol Use: None Drug Use: None (YAHAIRA SIERRA MD) Adult General Chief Complaint Chief Complaint: PSYCH EVALUATION HPI HPI Patient is a 50-year-old male with a past medical history significant for schizophrenia, bipolar, anxiety and depression who presents for a psychiatric evaluation. Patient states that over the last several days he has been hallucinating, seeing black figures moving around. States he is unable to identify them. States he knows that they are not there but he is still seeing them. States he also feels scared, like people are out to get him, and people are trying to kill him but cannot identify who it is or who they are and why they are trying to do this. Patient denies suicidal ideations or attempts. Denies any homicidal ideation. States he has been in psychiatric facilities before and nobody seems to be able to help him. States using [facility] recently and was given a shot which seemed to help temporarily but does not remember what the shot was and did not follow-up with [facility]. Denies headache, change in vision, chest pain, shortness of breath, abdominal pain, nausea, vomiting, dysuria, hematuria, diarrhea. Denies any recent cold/flu/Covid symptoms. Denies any alcohol or drug use. (YAHAIRA SIERRA MD) Review of Systems Review of Systems Review of systems otherwise unremarkable except noted in HPI (YAHAIRA SIERRA MD) Allergies Allergies Allergies Coded Allergies Type Severity Reaction Last Updated Verified No Known Drug Allergies 01/05/18 No (YAHAIRA SIERRA MD) Physical Exam Physical Exam Constitutional: Well developed, well nourished, no acute distress, non-toxic appearance. [] HENT: Normocephalic, atraumatic, bilateral external ears normal, oropharynx moist, no oral exudates, nose normal. [] Eyes: PERRLA, EOMI, conjunctiva normal, no discharge. [] Neck: Normal range of motion, no tenderness, supple, no stridor. [] Cardiovascular:Heart rate regular rhythm, no murmur [] Lungs & Thorax: Bilateral breath sounds clear to auscultation [] Abdomen: soft, no tenderness, Skin: Warm, dry, no erythema, no rash. [] Extremities: No tenderness, ROM intact, Neurologic: Alert and oriented X 3, grossly normal motor function, grossly normal sensory function, cranial nerves intact, no focal deficits noted. [] Psychologic: Patient appears anxious, with pressured speech, and constant scratching. Feels he is seeing black figures moving around the room, visual hallucinations. Also appears paranoid, stating that he knows people are out to get him and out to kill him but cannot identify who they are, and why they are trying to hurt him. States he just needs some medications because he is scared all the time and is tired of hallucinating but nobody can help him. Denies any thoughts of suicide or homicide. (YAHAIRA SIERRA MD) EKG EKG [] (YAHAIRA SIERRA MD) Radiology/Procedures Radiology/Procedures [] (YAHAIRA SIERRA MD) Heart Score C/O Chest Pain: No Risk Factors: Risk Factors: DM, Current or recent (<one month) smoker, HTN, HLP, family history of CAD, obesity. Risk Scores: Risk Factors: DM, Current or recent (<one month) smoker, HTN, HLP, family history of CAD, obesity. (YAHAIRA SIERRA MD) Course & Med Decision Making Course & Med Decision Making Patient is a 50-year-old male who presents for psychiatric evaluation secondary to hallucinations and what sounds like paranoid delusions Vital signs not concerning. Physical exam noted above. Given dose of midazolam for agitation. Laboratory analysis notable for mild leukocytosis. Acetaminophen normal. Salicylate normal. Ethyl alcohol normal. Negative Covid. [] After meeting with the psychiatry team, it was felt that patient was hallucinating and was having some paranoid delusions and would benefit from inpatient assessment/admission. Request and assessment done by [facility]. Pending their assessment. Patient care handed off to day team. (YAHAIRA SIERRA MD) Course & Med Decision Making Patient presented to the ED with concern for hallucinations that is requesting his psych medication injection. States he received this at and has the expectation we can review the records. Patient was just seen at [place] 2 weeks ago. Patient refused admission. Patient was refused from [facility]. Unable to place patient at any psych facility, there is no availability. Pt now requesting to be discharged. On reevaluation patient denies any suicidal or homicidal ideations. Patient does not know what medications he is supposed to be taking. Patient does not appear to be a danger to himself or others. Has been assessed by pat team who are present in ed. Will discharge home with strict ED return precautions were given for SI, HI or psychosis. Encouraged urgent outpatient follow-up with PMD and psychiatry. Life-threatening processes were considered but are low suspicion at this time, given history, physical exam and ED workup. Pt was educated on all prescription medications and adverse effects. All patient's questions were answered and pt was stable at time of discharge. Life/limb-threatening differential includes but is not limited to, end organ damage/sepsis, trauma/abuse/neglect, neurologic deficit, alcohol/drug ingestion, toxidrome, suicidal/homicidal ideations plans or attempts, psychosis or mental illness resulting in self neglect and inability to care for self. I spoken with the patient and her caregivers. I explained the patient's condition, diagnoses and treatment plan based on the information available to me at this time. I have answered the patient and her caregiver's questions and addressed any concerns. The patient and her caregivers have a good understanding of patient's diagnosis, condition and treatment plan as can be e xpected at this point. Vital signs have been stable. Patient's condition is stable and appropriate for discharge from the emergency department. Patient will pursue further outpatient evaluation with primary care physician or other designated or consulting physician as outlined in the discharge instructions. The patient and/or caregivers are agreeable to this plan of care and follow-up instructions have been explained in detail. The patient and/or caregivers have received these instructions in written form and have expressed an understanding of the discharge instructions. The patient and/or caregivers are aware that any significant change of condition or worsening of symptoms should prompt immediate return to this or the closest emergency department or call to 911. ([facility] DO) Dragon Disclaimer Dragon Disclaimer This electronic medical record was generated, in whole or in part, using a voice recognition dictation system. (YAHAIRA SIERRA MD) Departure Departure: Impression: Primary Impression: Visual hallucinations Additional Impression: Paranoid type delusional disorder Disposition: 01 DC HOME SELF CARE/HOMELESS Condition: STABLE Referrals: PCP,NO (PCP) FOLLOW UP WITH FAMILY MEDICINE: [facility], [address] [address] OR [facility] [address] [facility], Patient Instructions: Hallucinations and Delusions, Schizophrenia Additional Instructions: FOLLOW UP WITH PSYCHIATRY: [facility] [address] [place] [address] [facility] [address] [place] [address] Nguy[address]n [address] [place] [address] [employer] [facility] [address] [place] [address] EMERGENCY DEPARTMENT GENERAL DISCHARGE INSTRUCTIONS Thank you for coming to [facility] (ED) today and trusting us with you care. We trust that you had a positivie experience in our Emergency Department. If you wish to speak to the department management, you may call the director at [phone]. YOUR FOLLOW UP INSTRUCTIONS ARE FOLLOWS: 1. Do you have a private Doctor? If you do not have a private doctor, please ask for a resource list of physicians or clinics that may be able to assist you with follow up care. 2. The Emergency Physician has interpreted your x-rays. The X-Ray specialist will also review them. If there is a change in the findings, you will be notified in 48 hours when at all possible. 3. A lab test or culture has been done, your results will be reviewed and you will be notified if you need a change in treatment. ADDITIONAL INSTRUCTIONS AND INFORMATION: 1. Your care today has been supervised by a physician who is specially trained in emergency care. Many problems require more than one evaluation for a complete diagnosis and treatment. We recommend that you schedule your follow up appointment as recommended to ensure complete treatment of you illness or injury. If you are unable to obtain follow up care and continue to have a problem, or if your condition worsens, we recommend that you return to the ED. 2. We are not able to safely determine your condition over the phone nor are we able to give sound medical advice over the phone. For these safety reasons, if you call for medical advice we will ask you to come to the ED for further evaluation. 3. If you have any questions regarding these discharge instructions please call the ED at [phone]. SAFETY INFORMATION: In the interest of safety, wellness, and injury prevention; we encourage you to wear your sealbelt, if you smoke; quite smoking, and we encourage family to use a protective helmet for bicycling and other sporting events that present an increased risk for head injury. IF YOUR SYMPTOMS WORSEN OR NEW SYMPTOMS DEVELOP, OR YOU HAVE CONCERNS ABOUT YOUR CONDITION; OR IF YOUR CONDITION WORSENS WHILE YOU ARE WAITING FOR YOUR FOLLOW UP APPOINTMENT; EITHER CONTACT YOUR PRIMARY CARE DOCTOR, THE PHYSICIAN WHOSE NAME AND NUMBER YOU WERE GIVEN, OR RETURN TO THE ED IMMEDIATELY. Problem Qualifiers YAHAIRA SIERRA MD Jul 10, 2020 00:29 CRISTINA BLAKELY DO Jul 10, 2020 18:17
[2020-07-10] MEDS ORDERED: MIDAZOLAM HCL PF 5 MG/5 ML VIAL. ONE (00:37)
[2020-07-10 00:49] LABS: BASO # 0.1 x10^3/uL (0.0-0.2); BASO % 0 % (0-3); EOS # 0.1 x10^3/uL (0.0-0.7); EOS % 1 % (0-3); HEMATOCRIT 41.8 % (39.0-53.0); HEMOGLOBIN 14.3 g/dL (13.0-17.5); LYMPH # 1.3 x10^3/uL (1.0-4.8); LYMPH % 9 % (24-48); MEAN CORPUSCULAR HEMOGLOBIN 33 pg (25-35); MEAN CORPUSCULAR HGB CONC 34 g/dL (31-37); MEAN CORPUSCULAR VOLUME 95 fL (79-100); MONO # 0.6 x10^3/uL (0.0-1.1); MONO % 4 % (0-9); NEUT # 12.4 x10^3uL (1.8-7.7); NEUT % 85 % (31-73); PLATELET COUNT 226 x10^3/uL (140-400); RED CELL DISTRIBUTION WIDTH 12.9 % (11.5-14.5); WHITE BLOOD COUNT 14.6 x10^3/uL (4.0-11.0)
[2020-07-10 00:57] LABS: CALCIUM 9.1 mg/dL (8.5-10.1); CREATININE 0.8 mg/dL (0.7-1.3); GFR 102.3; POTASSIUM 3.6 mmol/L (3.5-5.1)
[2020-07-10] MEDS ORDERED: IV RINGERS SOLUTION,LACTATED 1,000 ML IV ONE (01:00)
[2020-07-10] MEDS ORDERED: MIDAZOLAM HCL PF 5 MG/5 ML VIAL. IV ONE (01:00)
[2020-07-10 01:05] LABS: ALBUMIN 3.2 g/dL (3.4-5.0); ALBUMIN/GLOBULIN RATIO 0.9 (1.0-1.7); TOTAL BILIRUBIN 0.3 mg/dL (0.2-1.0); TOTAL PROTEIN 6.6 g/dL (6.4-8.2)
[2020-07-10 01:07] LABS: ACETAMIN < 2.0 mcg/mL (10-30); ETHANOL < 10 mg/dL (0-10); SALIC 3.2 mg/dL (2.8-20.0)
[2020-07-10 01:30] LABS: BARBITURATES NEG (NEG); BENZODIAZEPINES NEG (NEG); CANNABINOIDS NEG (NEG); COCAINE NEG (NEG); METHADONE NEG (NEG); OPIATES NEG (NEG); PHENCYCLIDINE NEG (NEG)
[2020-07-10 01:33] LABS: AMPHETAMINE/METHAMPHETAMINE NEG (NEG)
[2020-07-10 02:36] VITALS: BP 96/56
== END 2020-07-10 18:45 | disposition home or self-care (01) ==
LOC: ER
DX: F20.0 Paranoid schizophrenia (principal); F31.9 Bipolar disorder, unspecified; F41.9 Anxiety disorder, unspecified; F17.210 Nicotine dependence, cigarettes, uncomplicated; Z20.822 Contact with and (suspected) exposure to COVID-19
CPT/HCPCS: 36415; 80053; 80307; 85025; 87426; 96361; 96374; 99283; C9803; G0480; J2250; J7120; U0003; U0005; 80329